=== PATIENT | female | born 1940 | race Caucasian/White ===

== ENCOUNTER 2024-05-21 20:11 | Emergency (ER) | payer BC, MEDICARE ==
[2024-05-21] MEDS ORDERED: KETAMINE 100 MG/ML (5ML VIAL) ONE (22:08)
[2024-05-21] MEDS ORDERED: Ondansetron PF 4 MG/2 ML Vial ONE (22:08)
[2024-05-21] MEDS ORDERED: fentaNYL 50 mcg/mL 1 mL Vial ONE (22:08)
[2024-05-22] MEDS ORDERED: Ketorolac Tromethamine 30 MG (1 mL) VIAL ONE (00:07)
== END 2024-05-22 00:45 | disposition home or self-care (01) ==
LOC: ERS 20:11
DX: S09.90XA Unspecified injury of head, initial encounter (principal); S42.291A Other displaced fracture of upper end of right humerus, initial encounter for closed fracture; S43.031A Inferior subluxation of right humerus, initial encounter; I10 Essential (primary) hypertension; W52.XXXA Crushed, pushed or stepped on by crowd or human stampede, initial encounter; Y93.89 Activity, other specified; Y92.009 Unspecified place in unspecified non-institutional (private) residence as the place of occurrence of the external cause
CPT/HCPCS: 23650; 70450; 72125; 73030 ×2; 96374; 96375; 99152; 99153; 99284; J1885; J2405; J3010